=== PATIENT | female | born 1995 | race American Indian/Alaskan Native ===

== ENCOUNTER 2020-12-01 07:03 | Emergency (ER) | payer SELFPAY ==
--- NOTE | 2020-12-01 07:49 | Emergency Department Report ---
ED Female HPI - General Chief complaint: Vaginal Bleeding Stated complaint: SPOTTING Time Seen by Provider: 12/01/20 07:46 Source: patient Mode of arrival: Ambulatory Limitations: No Limitations - History of Present Illness Initial comments: 25-year-old female with no significant past medical history presents to the ER today complaining of vaginal spotting. Patient states her symptoms started 1 week ago. She reports associated intermittent diffuse abdominal pain. She states that her last menstrual cycle was towards the end of October beginning november. She is not currently on any control. She does not think she is . She denies any nausea, vomiting, UTI symptoms abnormal vaginal discharge or any other symptoms at this time. Complaint: vaginal bleeding -: Sudden, week(s) (1 week ago ) - Related Data Previous Rx's Medication Instructions Recorded Last Taken Type metroNIDAZOLE [Flagyl] 500 mg PO Q12HR #14 tab 12/01/20 Unknown Rx Allergies Allergy/AdvReac Type Severity Reaction Status Date / Time No Known Allergies Allergy Unverified 12/01/20 07:35 ED Review of Systems ROS: Stated complaint: SPOTTING Other details as noted in HPI Comment: All other systems reviewed and negative Constitutional: denies: chills, fever Respiratory: denies: cough, shortness of breath, wheezing Cardiovascular: denies: chest pain, palpitations Gastrointestinal: abdominal pain. denies: nausea, vomiting, diarrhea, constipation, hematemesis, melena, hematochezia Genitourinary: abnormal menses. denies: urgency, dysuria, frequency, hematuria, discharge, dyspareunia Musculoskeletal: denies: back pain, joint swelling, arthralgia Skin: denies: rash, lesions Hematological/Lymphatic: denies: easy bleeding, easy bruising ED Past Medical Hx - Past Medical History Previous Medical History?: No - Surgical History Past Surgical History?: No - Social History Smoking Status: Never Smoker - Medications Home Medications: Home Medications Medication Instructions Recorded Confirmed Last Taken Type metroNIDAZOLE [Flagyl] 500 mg PO Q12HR #14 tab 12/01/20 Unknown Rx ED Physical Exam - General Limitations: No Limitations General appearance: alert, in no apparent distress - Head Head exam: Present: atraumatic, normocephalic, normal inspection - Eye Eye exam: Present: normal appearance, PERRL, EOMI Pupils: Present: normal accommodation - ENT ENT exam: Present: normal exam, mucous membranes moist - Neck Neck exam: Present: full ROM - Respiratory Respiratory exam: Absent: respiratory distress - Cardiovascular Cardiovascular Exam: Present: regular rate - GI/Abdominal GI/Abdominal exam: Present: soft. Absent: distended, tenderness - External exam: Present: normal external exam Speculum exam: Present: vaginal discharge (moderate thin white d/c ), other (cervical os close; tissue around Os friable and bleed slightlyh when removing speculum otherwise no old blood or active bleeding noted. ) Bi-manual exam: Present: normal bi-manual exam - Extremities Exam Extremities exam: Present: normal inspection - Back Exam Back exam: Present: normal inspection - Neurological Exam Neurological exam: Present: alert, oriented X3, CN II-XII intact, normal gait - Psychiatric Psychiatric exam: Present: normal affect, normal mood - Skin Skin exam: Present: intact ED Course Vital Signs 12/01/20 16:05 Temperature 97.8 F Pulse Rate 78 Respiratory 18 Rate Blood Pressure 122/70 ED Medical Decision Making - Lab Data Result diagrams: 12/01/20 11:12 12/01/20 12:45 - Radiology Data Radiology results: report reviewed - Medical Decision Making 25-year-old female with no significant past medical history presents to the ER today complaining of vaginal spotting. Patient states her symptoms started 1 week ago. She reports associated intermittent diffuse abdominal pain. She states that her last menstrual cycle was towards the end of October beginning of November. She is not currently on any control. She does not think she is . She denies any nausea, vomiting, UTI symptoms abnormal vaginal discharge or any other symptoms at this time. Lab results reviewed. CBC within normal limits. Patient was unsure of but serum quant [place] [address]. Ultrasound showed viable appearing early IUP. Moderate amount of implantation bleed. Patient was Rh-, therefore she received a dose of RhoGam here in ER today. Discussed lab results and ultrasound results with patient. Recommend close follow-up with [facility] this week or early next week. Patient expresses understanding of instructions and agree with plan. Patient was stable at time of discharge. Critical care attestation.: If time is entered above; I have spent that time in minutes in the direct care of this critically ill patient, excluding procedure time. ED Disposition Clinical Impression: Threatened miscarriage in early , Trichomonas vaginitis, Bacterial vaginosis in Disposition: DC-01 TO HOME OR SELFCARE Is pt being admited?: No Does the pt Need Aspirin: No Condition: Stable Instructions: Bacterial Vaginosis, [id number], Threatened Miscarriage, [id number], Bacterial Vaginosis (ED) Additional Instructions: You will need to f/u with local OBGYN given on your d/c instructions. Try to follow up this week or early next week. Take the flagyl as prescribed. You can take tylenol for pain. Return to ED if symptoms changes or worsens. Prescriptions: metroNIDAZOLE [Flagyl] 500 mg PO Q12HR #14 tab Referrals: [facility] [Provider Group] - 3-5 Days Forms: STI Treatment and Prevention Time of Disposition: 15:09
[2020-12-01 08:12] LABS: Bilirubin,Urine NEG (Negative); Blood,Urine NEG (Negative); Color,Urine Yellow (Yellow); Mucus,Urine FEW /HPF; Protein,Urine <15 mg/dL mg/dL (Negative); Urobilinogen,Urine < 2.0 mg/dL (<2.0)
[2020-12-01 11:28] LABS: Basophils # (Auto) 0.1 K/mm3 (0.0-0.1); Basophils % (Auto) 1.4 % (0.0-1.8); Eosinophils # (Auto) 0.1 K/mm3 (0.0-0.4); Hematocrit 40.2 % (30.3-42.9); Hemoglobin 13.3 gm/dl (10.1-14.3); Lymphocytes # (Auto) 2.1 K/mm3 (1.2-5.4); Mean Corpuscular HGB Conc 33 % (30-34); Mean Corpuscular Volume 85 fl (79-97); Monocytes # (Auto) 0.3 K/mm3 (0.0-0.8); Monocytes % (Auto) 4.3 % (0.0-7.3); Platelet Count 224 K/mm3 (140-440); Red Cell Distribution Width 16.6 % (13.2-15.2)
[2020-12-01 14:13] LABS: Alanine Aminotransferase 51 units/L (7-56); Albumin 4.3 g/dL (3.9-5); Blood Urea Nitrogen 7 mg/dL (7-17); Calcium 9.4 mg/dL (8.4-10.2); Hemolysis Index 5
[2020-12-01 14:14] LABS: BUN/Creatinine Ratio 18
--- NOTE | 2020-12-01 15:04 | Ultrasound Report ---
EARLY OBSTETRICAL ULTRASOUND INDICATION: /vag spotting COMPARISON: None pertinent recent TECHNIQUE: Endovaginal FINDINGS: Fundal intrauterine is seen. pole and yolk sac are seen. cardiac acti vity was documented at 171 bpm. Estimated gestational age is 9 weeks 3 days. There appears to be a mo derate implantational bleed measuring 3.9 cm in length and 1.7 cm in thickness. No other abnormalitie s are seen of the uterus or sac. Left ovary measures 3.7 cm in length and shows a minimal cyst. Right ovary measures 2.9 cm in length and shows a probable small hemorrhagic cyst, probably a corpus luteum cyst. There appears to be a min imal amount of free fluid in the right adnexal area. IMPRESSION: Viable appearing early intrauterine . Moderate implantational bleed. Recommend f ollow-up. Signer Name: Gavin Ely MD Signed: 12/01/2020 3:00 PM Workstation Name: [id number]
[2020-12-01 16:18] VITALS: BP 122/70
== END 2020-12-01 16:19 | disposition home or self-care (01) ==
LOC: ED 07:03
DX: O20.0 Threatened abortion (principal); O98.311 Other infections with a predominantly sexual mode of transmission complicating pregnancy, first trimester; A59.01 Trichomonal vulvovaginitis; Z3A.09 9 weeks gestation of pregnancy
CPT/HCPCS: 36415; 76817; 80053; 81001; 84702; 84703; 85025; 86850; 86900; 86901; 87210; 87591; 99284; J2790